=== PATIENT | female | born 1990 | race Caucasian/White ===

== ENCOUNTER 2018-05-12 08:13 | Emergency (ER) | payer OTHER ==
[2018-05-12] MEDS ORDERED: BUPIVACAINE 0.5% PF 10 ML VIAL ONE (09:00)
[2018-05-12] MEDS ORDERED: LIDOCAINE 1% 20 ML MDV ONE (09:00)
--- NOTE | 2018-05-12 10:04 | ER ---
Nurse's Notes [facility] Name: Faiza Craig Age: 27 yrs Sex: Female : 1990 Arrival Date: 05/12/2018 Time: 08:18 Bed 15 Private MD: None, None Diagnosis: Abscess of the groin Presentation: 05/12 08:45 Presenting complaint: Patient states: has abscess to right groin area since Tuesday, has iw doubled in size, is not draining. Transition of care: patient was not received from another setting of care. Onset of symptoms was May 08, 2018. Risk Assessment: Do you want to hurt yourself or someone else? Patient reports no desire to harm self or others. Initial Sepsis Screen: Does the patient meet any 2 criteria? No. Patient's initial sepsis screen is negative. Does the patient have a suspected source of infection? No. Patient's initial sepsis screen is negative. Care prior to arrival: None. 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 - Social history:: Smoking status: Patient/guardian denies using tobacco. - Ebola Screening: : Patient negative for fever greater than or equal to 101.5 degrees Fahrenheit, and additional compatible Ebola Virus Disease symptoms Patient denies exposure to infectious person Patient denies travel to an Ebola-affected area in the 21 days before illness onset No symptoms or risks identified at this time. Screenin:48 Abuse screen: Denies threats or abuse. Denies injuries from another. Nutritional iw screening: No deficits noted. Tuberculosis screening: No symptoms or risk factors identified. Fall Risk None identified. Assessment: 08:48 General: Appears in no apparent distress. Behavior is calm, cooperative. Pain: iw Complains of pain in suprapubic area Pain currently is 7 out of 10 on a pain scale. Neuro: Level of Consciousness is awake, alert, obeys commands, Oriented to person, place, time, situation, Moves all extremities. Full function. Cardiovascular: Patient's skin is warm and dry. Respiratory: Respiratory effort is even, unlabored, Respiratory pattern is regular, symmetrical. Derm: Abscess located on groin and right femoral area is half dollar sized, has no drainage. Musculoskeletal: Range of motion: intact in all extremities. 09:50 Reassessment: Patient appears in no apparent distress at this time. Patient and/or iw family updated on plan of care and expected duration. Pain level reassessed. Patient is alert, oriented x 3, equal unlabored respirations, skin warm/dry/pink. Patient states feeling better. Vital Signs: 08:46 BP 125 / 86; Pulse 85; Resp 16; Temp 99.1(O); Pulse Ox 99% on R/A; Weight 90.72 kg; iw Height 5 ft. 5 in. (165.10 cm); Pain 7/10; 09:45 BP 126 / 78; Pulse 81; Resp 16; Pulse Ox 99% on R/A; em 08:46 Body Mass Index 33.28 (90.72 kg, 165.10 cm) iw ED Course: 08:18 Patient arrived in ED. mr 08:18 None, None is Private Physician. mr 08:38 Cam Gandara PA is PHCP. jmm 08:38 Keven Mar MD is Attending Physician. jmm 08:45 Nicole Valdovinos, MAYNOR is Primary Nurse. iw 08:46 Triage completed. iw 08:54 Patient has correct armband on for positive identification. Placed in gown. Bed in low iw position. Call light in reach. Side rails up X2. Pulse ox on. NIBP on. 09:31 Arm band placed on. em 09:45 Assist provider with I \T\ D: of an abscess on right groin Set up I\T\D tray. Performed by em Cam COOMBS Wound packed. iodoform gauze, Dressing with 4X4s, Patient tolerated well. 10:03 Adalid Tan MD is Referral Physician. jmm 10:22 Patient did not have IV access during this emergency room visit. em Administered Medications: 09:40 Drug: Lidocaine (1 %) 20 ml {Note: administered by CORIN Levy.} Volume: 20 ml; Route: em Infiltration; Site: affected area; 09:40 Drug: Marcaine (0.5 %) 10 ml {Note: administered by CORIN Levy.} Volume: 10 ml; Route: em Infiltration; Site: affected area; Outcome: 10:04 Discharge ordered by MD. babcock 10: Discharged to home ambulatory. em 10: Condition: good 10:22 Discharge instructions given to patient, Instructed on discharge instructions, follow up and referral plans. no drinking with medication, no driving heavy equipment, medication usage, Demonstrated understanding of instructions, follow-up care, medications, Prescriptions given X 3. 10:23 Patient left the ED. em Signatures: Cam Gandara PA PA jmm Rivera, Maria mr Radu, Jones, ENVIRONMENTAL SCIENTISTS ENVIRONMENTAL SCIENTISTS em Nicole Valdovinos RN RN iw Corrections: (The following items were deleted from the chart) 10: 09:45 BP 126 / 78; Pulse 18bpm; Resp 16bpm; Pulse Ox 99% RA; em em
--- NOTE | 2018-05-12 10:04 | EDPHYS ---
Physician Documentation [facility] Name: Faiza Craig Age: 27 yrs Sex: Female : 1990 Arrival Date: 05/12/2018 Time: 08:18 Bed 15 Private MD: None, None ED Physician Keven Mar HPI: 05/12 08:44 This 27 yrs old Female presents to ER via Unassigned with complaints of jmm Abscess. 08:44 the patient presents with a swollen area of the right inguinal area. Onset: The jmm symptoms/episode began/occurred gradually, 4 day(s) ago. Possible cause(s): unknown. Associated signs and symptoms: Pertinent negatives: fever. Modifying factors: the symptoms are alleviated by nothing, the symptoms are aggravated by nothing. The patient has not experienced similar symptoms in the past. 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 - Social history:: Smoking status: Patient/guardian denies using tobacco. - Ebola Screening: : Patient negative for fever greater than or equal to 101.5 degrees Fahrenheit, and additional compatible Ebola Virus Disease symptoms Patient denies exposure to infectious person Patient denies travel to an Ebola-affected area in the 21 days before illness onset No symptoms or risks identified at this time. ROS: 08:44 Constitutional: Negative for fever, chills, and weight loss, Cardiovascular: Negative jmm for chest pain, palpitations, and edema, Respiratory: Negative for shortness of breath, cough, wheezing, and pleuritic chest pain, Abdomen/GI: Negative for abdominal pain, nausea, vomiting, diarrhea, and constipation, Back: Negative for injury and pain, : Negative for injury, bleeding, discharge, and swelling, MS/Extremity: Negative for injury and deformity. 08:44 Skin: Positive for swelling. 08:44 Neuro: Negative for weakness. 08:44 All other systems are negative. Exam: 08:44 Constitutional: This is a well developed, well nourished patient who is awake, alert, jmm and in no acute distress. 08:44 Head/Face: atraumatic. Eyes: EOMI, no conjunctival erythema appreciated 08:44 Neck: ROM/movement: is normal. 08:44 Cardiovascular: Rate: normal. 08:44 Respiratory: the patient does not display signs of respiratory distress. 08:44 Abdomen/GI: indurated skin noted to the right suprapubic region. 08:44 Skin: induration noted to the right suprapubic region. 08:44 Neuro: Orientation: is normal, Mentation: is normal, Memory: is normal. 08:44 Psych: Behavior/mood is pleasant, cooperative. Vital Signs: 08:46 BP 125 / 86; Pulse 85; Resp 16; Temp 99.1(O); Pulse Ox 99% on R/A; Weight 90.72 kg; iw Height 5 ft. 5 in. (165.10 cm); Pain 7/10; 09:45 BP 126 / 78; Pulse 81; Resp 16; Pulse Ox 99% on R/A; em 08:46 Body Mass Index 33.28 (90.72 kg, 165.10 cm) Procedures: 10:01 I \T\ D: Incision and drainage was performed for an abscess of the groin Prepped with [facility] Betadine, Anesthetized with 5 ml's 1% Lidocaine. Incised with #11 blade. Drained moderate amount purulent fluid. Packed with iodoform gauze, Dressing: sterile 4x4 gauze, the patient tolerated the procedure well. MDM: 08:43 Patient medically screened. [facility] 10:02 Data reviewed: vital signs, nurses notes. [facility] 10:30 Counseling: I had a detailed discussion with the patient and/or guardian regarding: the [facility] historical points, exam findings, and any diagnostic results supporting the discharge/admit diagnosis, the presence of at least one elevated blood pressure reading (>120/80) during this emergency department visit, the need for outpatient follow up, to return to the emergency department if symptoms worsen or persist or if there are any questions or concerns that arise at home. Response to treatment: the patient's symptoms have resolved after treatment. Administered Medications: 09:40 Drug: Lidocaine (1 %) 20 ml {Note: administered by PA. Cam} Volume: 20 ml; Route: em Infiltration; Site: affected area; 09:40 Drug: Marcaine (0.5 %) 10 ml {Note: administered by CORIN Levy.} Volume: 10 ml; Route: em Infiltration; Site: affected area; Disposition: 11:52 Co-signature as Attending Physician, Keven Mar MD. rn Disposition: 05/12/18 10:04 Discharged to Home. Impression: Abscess of the groin. - Condition is Stable. - Discharge Instructions: Abscess. - Prescriptions for Cephalexin 500 mg Oral Capsule - take 1 capsule by ORAL route every 6 hours for 10 days; 40 capsule. Tylenol- Codeine #3 300-30 mg Oral Tablet - take 2 tablets by ORAL route every 6 hours As needed; 15 tablet. Bactrim DS 800- 160 mg Oral Tablet - take 1 tablet by ORAL route every 12 hours for 10 days; 20 tablet. - Medication Reconciliation Form, Thank You Letter, Antibiotic Education, Prescription Opioid Use, Work release form form. - Follow up: Adalid Tan MD; When: 2 - 3 days; Reason: Continuance of care. Signatures: Cam Gandara PA PA jmm Munoz, Edgar, ROUNDING MACHINE TENDER ROUNDING MACHINE TENDER em Nicole Valdovinos, RN RN Keven Crawford MD MD rn traveling: (The following items were deleted from the chart) 10:23 10:04 05/12/2018 10:04 Discharged to Home. Impression: Abscess of the groin. Condition em is Stable. Forms are Medication Reconciliation Form, Thank You Letter, Antibiotic Education, Prescription Opioid Use. Follow up: Adalid Tan; When: 2 - 3 days; Reason: Continuance of care. yoko
== END 2018-05-12 10:23 | disposition home or self-care (01) ==
LOC: ER 08:13
PROC: 0J9C0ZZ Drainage of Pelvic Region Subcutaneous Tissue and Fascia, Open Approach (ICD-10-PCS; principal; 2018-05-12)
DX: L02.214 Cutaneous abscess of groin (principal)
CPT/HCPCS: 99284